=== PATIENT | male | born 1935 | race Caucasian/White ===

== ENCOUNTER → 2018-09-03 | Outpatient (CLI) | payer MEDICARE ==
[~2018-09-03] MED LIST: FURO40TA4 PO; METO-351 PO; OMEP20TA33 PO; PANT40TA2 PO; POTA10TA36 PO; SUCR1TAB36 PO
== END | disposition home or self-care (01) ==
LOC: PREOP 06:16
PROVIDERS: ATTEND Surgery
DX: Z01.818 Encounter for other preprocedural examination (principal)

== ENCOUNTER 2018-09-10 12:55 | Day surgery (SDC) | payer MEDICARE ==
[~2018-09-10] VITALS: Ht 167.6 cm; Wt 99.3 kg
[~2018-09-10 12:55] MED LIST changes: +FERR-84 PO; +GLYB5TAB6 PO; +HYDR25TA4 PO
--- OUTSIDE RECORDS SUMMARY | 2018-09-10 12:59 | XMS REPORT | Continuity of Care Document ---
Author Organization Unknown Address Unknown Allergies Active Description Code Type Severity Reaction Onset Reported/Identified Relationship to Patient Clinical Status Yes No Known Drug Allergies [id number] Drug Allergy Unknown N/A 03/01/2016 Medications There is no data. Problems Date Dx Coded Attending Type Code Diagnosis Diagnosed By 05/31/2015 TOMASA CONNER, SONAM Jack Ot I50.9 06/01/2015 TOMASA CONNER, SONAM Jack Ot D64.9 06/01/2015 SONAM RANDOLPH MD Ot E87.8 06/01/2015 SONAM RANDOLPH MD Ot I10 06/01/2015 TOMASA CONNER, SONAM Jack Ot I44.2 06/01/2015 TOMASA CONNER, SONAM Jack Ot I49.1 06/01/2015 SONAM RANDOLPH MD Ot I49.5 06/01/2015 SONAM RANDOLPH MD Ot I50.1 06/01/2015 SONAM RANDOLPH MD Ot R00.1 06/01/2015 SONAM RANDOLPH MD Ot D64.9 06/01/2015 SONAM RANDOLPH MD Ot E87.8 06/01/2015 OSNAM RANDOLPH MD Ot I10 06/01/2015 TOMASA CONNER, SONAM Jack Ot I44.2 06/01/2015 SONAM RANDOLPH MD Ot I49.1 06/01/2015 SONAM RANDOLPH MD Ot I49.5 06/01/2015 SONAM RANDOLPH MD Ot I50.1 06/01/2015 SONAM RANDOLPH MD Ot R00.1 06/02/2015 SONAM RANDOLPH MD Ot D64.9 06/02/2015 SONAM RANDOLPH MD Ot E87.8 06/02/2015 TOMASA CONNER, SONAM Jack Ot I10 06/02/2015 SONAM RANDOLPH MD Ot I44.2 06/02/2015 SONAM RANDOLPH MD Ot I49.1 06/02/2015 SONAM RANDOLPH MD Ot I49.5 06/02/2015 SONAM RANDOLPH MD Ot I50.1 06/02/2015 SONAM RANDOLPH MD Ot R00.1 06/02/2015 SONAM RANDOLPH MD Ot D50.0 06/02/2015 SONAM RANDOLPH MD Ot D63.8 ANEMIA IN OTHER CHRONIC DISEASES CLASSIF 06/02/2015 SONAM RANDOLPH MD Ot D64.9 06/02/2015 SONAM RANDOLPH MD Ot E87.8 OT DISORDERS OF ELECTROLYTE AND FLUID B 06/02/2015 SONAM RANDOLPH MD Ot I10 ESSENTIAL (PRIMARY) HYPERTENSION 06/02/2015 SONAM RANDOLPH MD Ot I44.2 ATRIOVENTRICULAR BLOCK, COMPLETE 06/02/2015 SONAM RANDOLPH MD Ot I49.1 ATRIAL PREMATURE DEPOLARIZATION 06/02/2015 SONAM RANDOLPH MD Ot I49.5 SICK SINUS SYNDROME 06/02/2015 SONAM RANDOLPH MD Ot I50.1 06/02/2015 SONAM RANDOLPH MD Ot I50.9 HEART FAILURE, UNSPECIFIED 06/02/2015 SONAM RANDOLPH MD Ot N17.9 ACUTE KIDNEY FAILURE, UNSPECIFIED 06/02/2015 SONAM RANDOLPH MD Ot R00.1 06/02/2015 SONAM RANDOLPH MD Ot R19.5 OTHER FECAL ABNORMALITIES 06/08/2015 SONAM RANDOLPH MD Ot D64.9 06/08/2015 SONAM RANDOLPH MD Ot I50.9 06/08/2015 SONAM RANDOLPH MD Ot R00.1 06/15/2015 SONAM RANDOLPH MD Ot D64.9 06/15/2015 SONAM RANDOLPH MD Ot I50.9 06/15/2015 SONAM RANDOLPH MD Ot R00.1 06/15/2015 SONAM RANDOLPH MD Ot D64.9 06/15/2015 SONAM RANDOLPH MD Ot I50.9 06/15/2015 TOMASA CONNER, SONAM Jack Ot R00.1 06/23/2015 SONAM RANDOLPH MD Ot D64.9 06/23/2015 TOMASA CONNER, SONAM Jack Ot I50.9 06/23/2015 SONAM RANDOLPH MD Ot R00.1 07/08/2015 ANGELINE TAPIA DO Ot D64.9 ANEMIA, UNSPECIFIED 07/08/2015 ANGELINE TAPIA DO Ot Z01.818 ENCOUNTER FOR OTHER PREPROCEDURAL EXAMIN 07/09/2015 ANGELINE TAPIA DO Ot D64.9 ANEMIA, UNSPECIFIED 07/09/2015 ANGELINE TAPIA DO Ot Z01.818 ENCOUNTER FOR OTHER PREPROCEDURAL EXAMIN 07/13/2015 TOMASA CONNER, SONAM Jack Ot D64.9 ANEMIA, UNSPECIFIED 07/13/2015 TOMASA CONNER, SONAM Jack Ot I50.9 HEART FAILURE, UNSPECIFIED 07/13/2015 TOMASA CONNER, SONAM Jack Ot R00.1 BRADYCARDIA, UNSPECIFIED 07/15/2015 ANGELINE TAPIA DO Ot D64.9 ANEMIA, UNSPECIFIED 07/15/2015 ANGELINE TAPIA DO Ot K29.70 GASTRITIS, UNSPECIFIED, WITHOUT BLEEDING 07/15/2015 ANGELINE TAPIA DO Ot K44.9 DIAPHRAGMATIC HERNIA WITHOUT OBSTRUCTION 07/15/2015 ANGELINE TAPIA DO Ot K57.30 DVRTCLOS OF LG INT W/O PERFORATION OR AB 07/15/2015 ANGELINE TAPIA DO Ot R19.5 OTHER FECAL ABNORMALITIES 07/20/2015 TOMASA CONNER, SONAM Jack Ot D64.9 ANEMIA, UNSPECIFIED 07/20/2015 SONAM RANDOLPH MD Ot I50.9 HEART FAILURE, UNSPECIFIED 07/20/2015 SONAM RANDOLPH MD Ot R00.1 BRADYCARDIA, UNSPECIFIED 07/20/2015 ANGELINE TAPIA DO Ot D64.9 ANEMIA, UNSPECIFIED 07/20/2015 ANGELINE TAPIA DO Ot K29.70 GASTRITIS, UNSPECIFIED, WITHOUT BLEEDING 07/20/2015 ANGELINE TAPIA DO Ot K44.9 DIAPHRAGMATIC HERNIA WITHOUT OBSTRUCTION 07/20/2015 ANGELINE TAPIA DO Ot K57.30 DVRTCLOS OF LG INT W/O PERFORATION OR AB 07/20/2015 ANGELINE TAPIA DO Ot R19.5 OTHER FECAL ABNORMALITIES 07/21/2015 PHUONG HERRING, ALI FACP CCDS Ot I44.2 ATRIOVENTRICULAR BLOCK, COMPLETE 07/21/2015 PHUONG CONNER FACC, ALI FACP CCDS Ot I51.7 CARDIOMEGALY 07/21/2015 PHUONG CONNER FACC, ALI FACP CCDS Ot N28.9 DISORDER OF KIDNEY AND URETER, UNSPECIFI 07/21/2015 PHUONG CONNER FACC, ALI FACP CCDS Ot Z86.2 PRSNL HISTORY OF DIS OF THE BLD/BLD-FORM 08/03/2015 PHUONG CONNER FACC, ALI FACP CCDS Ot I44.2 ATRIOVENTRICULAR BLOCK, COMPLETE 08/03/2015 PHUONG CONNER [facility], ALI FACP CCDS Ot I51.7 CARDIOMEGALY 08/03/2015 PHUONG CONNER [facility], ALI FACP CCDS Ot N28.9 DISORDER OF KIDNEY AND URETER, UNSPECIFI 08/03/2015 PHUONG CONNER [facility], ALI FACP CCDS Ot Z86.2 PRSNL HISTORY OF DIS OF THE BLD/BLD-FORM 08/20/2015 ANGELINE TAPIA DO Ot D64.9 ANEMIA, UNSPECIFIED 08/20/2015 ANGELINE TAPIA DO Ot K29.70 GASTRITIS, UNSPECIFIED, WITHOUT BLEEDING 08/20/2015 ANGELINE TAPIA DO Ot K44.9 DIAPHRAGMATIC HERNIA WITHOUT OBSTRUCTION 08/20/2015 ANGELINE TAPIA DO Ot K57.30 DVRTCLOS OF LG INT W/O PERFORATION OR AB 08/20/2015 ANGELINE TAPIA DO Ot R19.5 OTHER FECAL ABNORMALITIES 11/05/2015 TOMASA CONNER, SONAM Jack Ot D64.9 ANEMIA, UNSPECIFIED 11/05/2015 TOMASA CONNER, SONAM Jack Ot I50.9 HEART FAILURE, UNSPECIFIED 11/05/2015 TOMASA CONNER, SONAM Jack Ot R00.1 BRADYCARDIA, UNSPECIFIED 11/05/2015 ANGELINE TAPIA DO Ot D64.9 ANEMIA, UNSPECIFIED 11/05/2015 ANGELINE TAPIA DO Ot K29.70 GASTRITIS, UNSPECIFIED, WITHOUT BLEEDING 11/05/2015 ANGELINE TAPIA DO Ot K44.9 DIAPHRAGMATIC HERNIA WITHOUT OBSTRUCTION 11/05/2015 ANGELINE TAPIA DO Ot K57.30 DVRTCLOS OF LG INT W/O PERFORATION OR AB 11/05/2015 ANGELINE TAPIA DO Ot R19.5 OTHER FECAL ABNORMALITIES 11/05/2015 PHUONG CONNER FAC, ALI FACP CCDS Ot I44.2 ATRIOVENTRICULAR BLOCK, COMPLETE 11/05/2015 PHUONG CONNER FAC, ALI FACP CCDS Ot I51.7 CARDIOMEGALY 11/05/2015 PHU[facility] N28.9 DISORDER OF KIDNEY AND URETER, UNSPECIFI 11/05/2015 PHUONG CONNER 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 03/02/2016 SONAM RANDOLPH MD Ot I12.9 HYPERTENSIVE CHRONIC KIDNEY DISEASE W ST 03/02/2016 SONAM RANDOLPH MD, Ot N17.9 ACUTE KIDNEY FAILURE, UNSPECIFIED 03/02/2016 SONAM RANDOLPH MD, Ot N18.9 CHRONIC KIDNEY DISEASE, UNSPECIFIED 03/02/2016 SONAM RANDOLPH MD, Ot N28.9 DISORDER OF KIDNEY AND URETER, UNSPECIFI 03/02/2016 SONAM RANDOLPH MD, Ot R60.9 EDEMA, UNSPECIFIED 03/02/2016 SONAM RANDOLPH MD Ot Z23 ENCOUNTER FOR IMMUNIZATION 03/02/2016 SONAM RANDOLPH MD, Ot Z95.0 PRESENCE OF CARDIAC PACEMAKER 08/22/2018 TOMASA CONNER, SONAM Jack Ot D64.9 ANEMIA, UNSPECIFIED 08/28/2018 TOMASA CONNER, SONAM Jack Ot D64.9 ANEMIA, UNSPECIFIED 09/04/2018 ANGELINE TAPIA DO Ot Z01.818 ENCOUNTER FOR OTHER PREPROCEDURAL EXAMIN 09/06/2018 ANGELINE TAPIA DO Ot Z01.818 ENCOUNTER FOR OTHER PREPROCEDURAL EXAMIN Procedures Code Description Performed By Performed On [id number] INSERTION OF PACEMAKER LEAD INTO RIGHT A 05/31/2015 [id number] INSERTION OF PACEMAKER LEAD INTO R VENTR 05/31/2015 [id number] INSERT PACE. DUAL RAMON IN CHEST SUBCU/FA 05/31/2015 Results Test Result Range RED CELLS LEUKO REDUCED AS1 - 11/05/15 08:12 RED CELLS LEUKO REDUCED AS1 TRANSFUSED 11/05/15 1105 NRG Blood type T Indirect antibody screen panel - 11/05/15 08:12 ABO+Rh group OP NRG Transfusion band number [id number] NRG Blood group antibody screen NEGATIVE NRG RED CELLS LEUKO REDUCED AS1 - 03/01/16 14:58 RED CELLS LEUKO REDUCED AS1 TRANSFUSED 03/01/16 1657 NRG Blood type T Indirect antibody screen panel - 03/01/16 14:58 ABO+Rh group OP NRG Transfusion band number [id number] NRG Blood group antibody screen NEGATIVE NRG Complete blood count (CBC) with automated white blood cell (WBC) differential - 03/02/16 05:40 Blood leukocytes automated count (number/volume) 5.8 10*3/uL 4.3-11.0 Blood erythrocytes automated count (number/volume) 3.54 10*6/uL 4.35-5.85 Venous blood hemoglobin measurement (mass/volume) 8.4 g/dL 13.3-17.7 Blood hematocrit (volume fraction) 27 % 40-54 Automated erythrocyte mean corpuscular volume 76 [foz_us] 80-99 Automated erythrocyte mean corpuscular hemoglobin (mass per erythrocyte) 24 pg 25-34 Automated erythrocyte mean corpuscular hemoglobin concentration measurement (mass/volume) 31 g/dL 32-36 Automated erythrocyte distribution width ratio 21.0 % 10.0- 14.5 Automated blood platelet count (count/volume) 179 10*3/uL 130-400 Automated blood platelet mean volume measurement 9.2 [foz_us] 7.4-10.4 Automated blood neutrophils/100 leukocytes 69 % 42-75 Automated blood lymphocytes/100 leukocytes 21 % 12-44 Blood monocytes/100 leukocytes 9 % 0-12 Automated blood eosinophils/100 leukocytes 1 % 0-10 Automated blood basophils/100 leukocytes 0 % 0-10 Blood neutrophils automated count (number/volume) 4.0 10*3 1.8-7.8 Blood lymphocytes automated count (number/volume) 1.2 10*3 1.0-4.0 Blood monocytes automated count (number/volume) 0.5 10*3 0.0- 1.0 Automated eosinophil count 0.1 10*3/uL 0.0-0.3 Automated blood basophil count (count/volume) 0.0 10*3/uL 0.0-0.1 Whole blood basic metabolic panel - 03/02/16 05:40 Serum or plasma sodium measurement (moles/volume) 138 mmol/L 135-145 Serum or plasma potassium measurement (moles/volume) 4.5 mmol/L 3.6-5.0 Serum or plasma chloride measurement (moles/volume) 104 mmol/L 98-107 Carbon dioxide 26 mmol/L 21-32 Serum or plasma anion gap determination (moles/volume) 8 mmol/L 5-14 Serum or plasma urea nitrogen measurement (mass/volume) 42 mg/dL 7-18 Serum or plasma creatinine measurement (mass/volume) 2.18 mg/dL 0.60-1.30 Serum or plasma urea nitrogen/creatinine mass ratio 19 NRG Serum or plasma creatinine measurement with calculation of estimated glomerular filtration rate 29 NRG Serum or plasma glucose measurement (mass/volume) 100 mg/dL 70-105 Serum or plasma calcium measurement (mass/volume) 8.5 mg/dL 8.5-10.1 Serum or plasma lithium measurement (moles/volume) - 03/02/16 05:40 BNP level 475.0 pg/mL <100.0 Encounters ACCT No. Visit Date/Time Discharge Status Pt. Type Provider Facility Loc./Unit Complaint [id number] 09/06/2018 12:30:00 09/06/2018 13:05:00 DIS Outpatient ANGELINE TAPIA DO [facility] PREOP EGD [id number] 08/22/2018 13:46:00 08/22/2018 23:59:59 CLS Outpatient JAYY PRINCE [facility] ONC [id number] 03/01/2016 14:23:00 03/02/2016 14:36:00 DIS Inpatient SONAM RANDOLPH MD [facility] 4TH ACUTE RENAL DEFICIENCY, SEVERE ANEMIA [id number] 11/05/2015 07:53:00 11/05/2015 23:59:59 C[facility] [id number] 07/20/2015 13:10:00 07/20/2015 23:59:59 CLS Outpatient PHUONG CONNER FACC, MELLY FERRER CCDS [facility] LAB COMPLETE HEART BLOCK,RT HEART ENLARGEMENT, ANEMIA [id number] 07/13/2015 12:21:00 07/13/2015 23:59:59 CLS Outpatient ANGELINE TAPIA DO [facility] SDC ANEMIA [id number] 07/08/2015 05:39:00 07/08/2015 10:05:00 DIS Outpatient ANGELINE TAPIA DO [facility] PREOP ANEMIA [id number] 06/07/2015 11:20:00 06/07/2015 23:59:59 CLS Outpatient SONAM RANDOLPH MD [facility] LAB CHF, BRADYCARDIA, ANEMIA [id number] 05/28/2015 16:10:00 06/02/2015 13:10:00 DIS Inpatient SONAM RANDOLPH MD [facility] 4TH CHF,ANEMIA,RT HEART FAILURE,RENAL FAILURE [id number] 09/10/2018 13:20:00 PEN Preadmit ANGELINE TAPIA DO [facility] ENDO IRON DEF ANEMIA
[2018-09-10 13:00] VITALS: BP 170/74
[2018-09-10] MEDS ORDERED: LACTATED RINGERS 1,000 ML IV STA (13:06)
[2018-09-10] MEDS ORDERED: LACTATED RINGERS 1,000 ML IV ONE (13:10)
[2018-09-10] MEDS ORDERED: HURRICAINE EXT TUBE (BENZOCAINE) XX PRN (13:15)
[2018-09-10] MEDS ORDERED: proPOfol 200 MG/20 ML (DIPRIVAN) VIAL IV ONE ×2 (13:34→13:39)
--- NOTE | 2018-09-10 13:39 | Progress Note-Pre Operative ---
Pre-Operative Progress Note H&P Reviewed The H&P was reviewed, patient examined and no changes noted. Date Seen by Provider: Sep 10, 2018 Time Seen by Provider: 13:39 Date H&P Reviewed: Sep 10, 2018 Time H&P Reviewed: 13:39 Pre-Operative Diagnosis: iron def anemia ANGELINE TAPIA DO Sep 10, 2018 13:39
[2018-09-10] MEDS ORDERED: HURRICAINE EXT TUBE (BENZOCAINE) ONE (13:46)
--- NOTE | 2018-09-10 14:16 | Progress Note-Post Operative ---
Post-Operative Progess Note Surgeon (s)/Upper Leather Sorter (s) Surgeon ANGELINE TAPIA DO Upper Leather Sorter: na Pre-Operative Diagnosis iron def anemia Post-Operative Diagnosis gastritis c erosions Procedure & Operative Findings Date of Procedure 09/10/18 Procedure Performed/Findings egd c biopsy Anesthesia Type per [facility] Estimated Blood Loss Estimated blood loss (mL): scant Specimens/Packing Specimens Removed antrum ANGELINE TAPIA DO Sep 10, 2018 14:16
[2018-09-10] MEDS ORDERED: PANT40TA2 PO (14:21)
[2018-09-10 14:25] VITALS: BP 164/72
--- NOTE | 2018-09-10 14:40 | Anesthesia-General Post-Op ---
MAC Patient Condition Mental Status/LOC: Same as Preop Cardiovascular: Satisfactory Nausea/Vomiting: Absent Respiratory: Satisfactory Pain: Controlled Complications: Absent Post Op Complications Complications None Follow Up Care/Instructions Patient Instructions None needed. Anesthesiology Discharge Order Discharge Order Patient is doing well, no complaints, stable vital signs, no apparent adverse anesthesia problems. No complications reported per nursing. TORIBIO WEAVER CRNA Sep 10, 2018 14:40
[2018-09-10 14:55] VITALS: BP 175/83
--- NOTE | 2018-09-10 15:14 | Discharge Inst-Simple/Standard ---
Discharge Inst-Standard Discharge Medications New, Converted or Re-Newed RX: Transmitted to Pharmacy Patient Instructions/Follow Up Plan of Care/Instructions/FU: 2 weeks Bakari Activity as Tolerated: Yes Discharge Diet: Regular Diet ANGELINE TAPIA DO Sep 10, 2018 15:14
[2018-09-10 15:20] VITALS: BP 175/83
--- NOTE | 2018-09-10 20:10 | OPERATIVE REPORT ---
DATE OF SERVICE: 09/10/2018 PREOPERATIVE DIAGNOSIS: Iron deficiency anemia. POSTOPERATIVE DIAGNOSIS: Gastritis with erosions. PROCEDURE: EGD with biopsy. SURGEON: Angeline Villegas DO ANESTHESIA: Per MDA. ESTIMATED BLOOD LOSS: Scant. COMPLICATIONS: None. INDICATIONS: The patient is an 83-year-old male with iron deficiency anemia with history of significant gastritis. The patient understands risks and benefits of procedure and wished to proceed with procedure. Consent was signed in the chart. DESCRIPTION OF PROCEDURE: The patient was taken to the endoscopy suite, placed in the left lateral recumbent position. Timeout was performed. Scope was inserted in mouth, down the esophagus into the stomach and into the duodenum without difficulty. There were no polyps, masses or ulcerations within the duodenum. Scope was slowly retracted back into the stomach where it was further insufflated. Significant erythematous changes throughout the antrum with areas of raised areas with erosions present. Biopsy of this area was obtained. Scope was retroflexed noting no other pathology. Scope was returned to its normal position, slowly withdrawn to the distal esophagus, which the patient had esophageal varices throughout the esophagus. No polyps, mass or ulcerations. The scope was then slowly retracted back to completely remove, noting no other pathology. The patient tolerated procedure well without any complications. He was taken to recovery room in stable condition. RECOMMENDATIONS: The patient will be switched to Protonix 40 mg daily and stop the omeprazole. We will see how he is doing in the office in about 2 to 3 weeks. Job ID: [id number] DocumentID: [id number] Dictated Date: 09/10/2018 14:23:38 Circular Knife Machine Cutter Date: 09/10/2018 20:09:07 Dictated By: ANGELINE VILLEGAS DO
== END 2018-09-10 15:20 | disposition home or self-care (01) ==
LOC: ENDO 12:55
PROVIDERS: ATTEND Surgery
DX: K29.70 Gastritis, unspecified, without bleeding (principal); K25.9 Gastric ulcer, unspecified as acute or chronic, without hemorrhage or perforation; D50.9 Iron deficiency anemia, unspecified; E11.9 Type 2 diabetes mellitus without complications; I10 Essential (primary) hypertension; I44.2 Atrioventricular block, complete; E66.9 Obesity, unspecified; Z68.35 Body mass index [BMI] 35.0-35.9, adult; Z95.0 Presence of cardiac pacemaker; Z79.899 Other long term (current) drug therapy
CPT/HCPCS: 82962

== ENCOUNTER 2018-09-13 10:57 | Outpatient (RCR) | payer MEDICARE ==
[2018-08-22 14:26] LABS: ABSOLUTE RETIC # 56 10e9/L (24-90); BASOPHILS % (AUTO) 1 % (0-10); EOSINOPHILS # (AUTO) 0.1 10^3/uL (0.0-0.3); EOSINOPHILS % (AUTO) 2 % (0-10); HEMATOCRIT 24 % (40-54); HEMOGLOBIN 7.3 G/DL (13.3-17.7); LYMPHOCYTES # (AUTO) 1.1 X 10^3 (1.0-4.0); LYMPHOCYTES % (AUTO) 25 % (12-44); MEAN CORPUSCULAR HEMOGLOBIN 20 PG (25-34); MEAN CORPUSCULAR HGB CONC 30 G/DL (32-36); MEAN CORPUSCULAR VOLUME 68 FL (80-99); MEAN PLATELET VOLUME 9.3 FL (7.4-10.4); MONOCYTES # (AUTO) 0.4 X 10^3 (0.0-1.0); MONOCYTES % (AUTO) 9 % (0-12); NEUTROPHILS # (AUTO) 2.8 X 10^3 (1.8-7.8); NEUTROPHILS % (AUTO) 64 % (42-75); PLATELET COUNT 255 10^3/uL (130-400); RED CELL DISTRIBUTION WIDTH 19.6 % (10.0-14.5); RETICULOCYTE % 1.58 % (0.50-2.40); WHITE BLOOD COUNT 4.4 10^3/uL (4.3-11.0)
[2018-08-22 14:52] LABS: ALBUMIN 3.9 GM/DL (3.2-4.5); BILIRUBIN,TOTAL 0.8 MG/DL (0.1-1.0); CALCIUM 9.1 MG/DL (8.5-10.1); CREATININE SERUM 1.53 MG/DL (0.60-1.30); POTASSIUM 3.9 MMOL/L (3.6-5.0); TOTAL PROTEIN 7.6 GM/DL (6.4-8.2)
[2018-09-13 11:13] LABS: BASOPHILS % (AUTO) 0 % (0-10); EOSINOPHILS # (AUTO) 0.1 10^3/uL (0.0-0.3); EOSINOPHILS % (AUTO) 2 % (0-10); HEMATOCRIT 32 % (40-54); HEMOGLOBIN 9.6 G/DL (13.3-17.7); LYMPHOCYTES # (AUTO) 1.3 X 10^3 (1.0-4.0); LYMPHOCYTES % (AUTO) 25 % (12-44); MEAN CORPUSCULAR HEMOGLOBIN 24 PG (25-34); MEAN CORPUSCULAR HGB CONC 30 G/DL (32-36); MEAN CORPUSCULAR VOLUME 79 FL (80-99); MEAN PLATELET VOLUME 9.4 FL (7.4-10.4); MONOCYTES # (AUTO) 0.4 X 10^3 (0.0-1.0); MONOCYTES % (AUTO) 8 % (0-12); NEUTROPHILS # (AUTO) 3.3 X 10^3 (1.8-7.8); NEUTROPHILS % (AUTO) 65 % (42-75); PLATELET COUNT 175 10^3/uL (130-400); WHITE BLOOD COUNT 5.1 10^3/uL (4.3-11.0)
== END 2018-11-20 | disposition home or self-care (01) ==
LOC: ONC 10:57
PROVIDERS: ATTEND Internal Medicine Hematology & Oncology
DX: D50.9 Iron deficiency anemia, unspecified (principal); I10 Essential (primary) hypertension; E11.9 Type 2 diabetes mellitus without complications; I44.2 Atrioventricular block, complete; Z87.11 Personal history of peptic ulcer disease; Z95.0 Presence of cardiac pacemaker; Z79.84 Long term (current) use of oral hypoglycemic drugs; Z79.899 Other long term (current) drug therapy
CPT/HCPCS: 36415; 80053; 82728; 82784; 83540; 83615; 83883; 84155; 84165; 84443; 85025; 85045; 99213; 99214

== ENCOUNTER → 2020-02-16 | Outpatient (CLI) | payer MEDICARE ==
[2020-02-16 15:23] LABS: BASOPHILS % (AUTO) 1 % (0-10); EOSINOPHILS # (AUTO) 0.1 10^3/uL (0.0-0.3); EOSINOPHILS % (AUTO) 1 % (0-10); HEMATOCRIT 42 % (40-54); HEMOGLOBIN 13.4 g/dL (13.3-17.7); LYMPHOCYTES # (AUTO) 1.2 10^3/uL (1.0-4.0); LYMPHOCYTES % (AUTO) 21 % (12-44); MEAN CORPUSCULAR HEMOGLOBIN 33 pg (25-34); MEAN CORPUSCULAR HGB CONC 32 g/dL (32-36); MEAN CORPUSCULAR VOLUME 102 fL (80-99); MEAN PLATELET VOLUME 10.1 fL (9.0-12.2); MONOCYTES # (AUTO) 0.4 10^3/uL (0.0-1.0); MONOCYTES % (AUTO) 8 % (0-12); NEUTROPHILS # (AUTO) 3.8 10^3/uL (1.8-7.8); NEUTROPHILS % (AUTO) 69 % (42-75); PLATELET COUNT 142 10^3/uL (130-400); WHITE BLOOD COUNT 5.4 10^3/uL (4.3-11.0)
[2020-02-16 15:42] LABS: ALBUMIN 3.8 GM/DL (3.2-4.5); CALCIUM 9.1 MG/DL (8.5-10.1); CREATININE SERUM 1.38 MG/DL (0.60-1.30); POTASSIUM 4.3 MMOL/L (3.6-5.0); TOTAL PROTEIN 7.6 GM/DL (6.4-8.2)
[2020-02-16 15:45] LABS: BILIRUBIN,URINE NEGATIVE (NEGATIVE); CLARITY,URINE CLEAR; COLOR,URINE YELLOW; GLUCOSE, URINE (UA) NEGATIVE (NEGATIVE); KETONES,URINE NEGATIVE (NEGATIVE); LEUKOCYTE ESTERASE ,URINE NEGATIVE (NEGATIVE); NITRITE,URINE NEGATIVE (NEGATIVE); PROTEIN,URINE NEGATIVE (NEGATIVE)
[2020-02-16 16:00] LABS: AMORPHOUS SEDIMENT,UR FEW AMOR URATES /LPF; BACTERIA,URINE NEGATIVE /HPF
== END ==
LOC: LAB 14:59
PROVIDERS: ATTEND Thoracic Surgery (Cardiothoracic Vascular Surgery)
DX: Z01.810 Encounter for preprocedural cardiovascular examination (principal); Z01.818 Encounter for other preprocedural examination; Z11.59 Encounter for screening for other viral diseases; I65.23 Occlusion and stenosis of bilateral carotid arteries
CPT/HCPCS: 36415; 80053; 81000; 85025

== ENCOUNTER → 2020-02-16 | Outpatient (CLI) | payer MEDICARE ==
--- NOTE | 2020-02-16 17:28 | Diagnostic Imaging Report ---
EXAMINATION: US Lower Extremity Arterial Duplex Bilateral. TECHNIQUE: Multiple real-time grayscale images were obtained over both lower extremities in various projections. Additional duplex Doppler and color Doppler images were also obtained. HISTORY: Non pressure chronic ulcer Lt calf. COMPARISON: None available. FINDINGS: Right lower extremity: A normal triphasic waveform is seen within the common femoral and superficial femoral arteries. Biphasic flow is seen within the popliteal, anterior tibial, and dorsalis pedis arteries. Abnormal monophasic flow is seen within the posterior tibial artery. Mild plaquing is seen in the right lower extremity. There is decrease velocity seen within the posterior tibial artery. Left lower extremity: A normal triphasic waveform is seen within the left common femoral, superficial femoral, and popliteal arteries. Abnormal monophasic flow is seen within the anterior tibial, posterior tibial, and dorsalis pedis arteries. Mild plaquing is seen in the left lower extremity. There is monophasic flow with increased velocities in the anterior tibial and dorsalis pedis arteries suggesting focal stenosis at this location. There is dampened monophasic flow within the posterior tibial artery suggesting a more proximal stenosis. IMPRESSION: 1. 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 2. Hemodynamically significant stenosis within the right anterior tibial, posterior tibial, and dorsalis pedis arteries. Dictated by: Dictated on workstation # [id number]
== END ==
LOC: RAD 14:56
PROVIDERS: ATTEND Nurse Practitioner Acute Care
DX: I65.23 Occlusion and stenosis of bilateral carotid arteries (principal); L97.221 Non-pressure chronic ulcer of left calf limited to breakdown of skin
CPT/HCPCS: 93925

== ENCOUNTER → 2020-02-19 | Outpatient (CLI) | payer MEDICARE ==
--- NOTE | 2020-02-19 15:24 | Diagnostic Imaging Report ---
PA and lateral chest at 2:34. Indication: Preop carotid artery surgery. The heart size is within normal limits and the heart does seem less prominent than noted on the prior exam of 05/31/2015. The left-sided pacemaker seen previously is again evident. In the interval since the prior exam a vague area of increased density has developed along the left heart border. This may be secondary to chronic atelectasis/scar formation as opposed to mild acute pneumonia/atelectasis. Clinical followup is recommended however. The carotid bronchovascular markings in the right infrahilar region seen previously are again evident and no different. The lungs are otherwise generally clear. The mediastinum is not widened. The osseous structures are intact. Impression: 1. The vague area of increased density partial obscuring the left heart border may well be chronic in nature. The possibility that there is an element of mild pneumonia/atelectasis in this area should also be considered. Clinical followup is recommended. 2. There is no acute cardiopulmonary abnormality noted otherwise. Dictated by: Dictated on workstation # [id number]
== END ==
LOC: CARD 14:26
PROVIDERS: ATTEND Thoracic Surgery (Cardiothoracic Vascular Surgery)
DX: Z01.810 Encounter for preprocedural cardiovascular examination (principal); Z11.59 Encounter for screening for other viral diseases; I65.23 Occlusion and stenosis of bilateral carotid arteries
CPT/HCPCS: 71046

== ENCOUNTER → 2020-03-29 | Outpatient (CLI) | payer MEDICARE ==
[2020-03-29 16:30] LABS: BASOPHILS % (AUTO) 1 % (0-10); EOSINOPHILS # (AUTO) 0.1 10^3/uL (0.0-0.3); EOSINOPHILS % (AUTO) 1 % (0-10); HEMATOCRIT 39 % (40-54); HEMOGLOBIN 13.1 g/dL (13.3-17.7); LYMPHOCYTES # (AUTO) 1.6 10^3/uL (1.0-4.0); LYMPHOCYTES % (AUTO) 25 % (12-44); MEAN CORPUSCULAR HEMOGLOBIN 32 pg (25-34); MEAN CORPUSCULAR HGB CONC 34 g/dL (32-36); MEAN CORPUSCULAR VOLUME 93 fL (80-99); MEAN PLATELET VOLUME 10.1 fL (9.0-12.2); MONOCYTES # (AUTO) 0.4 10^3/uL (0.0-1.0); MONOCYTES % (AUTO) 7 % (0-12); NEUTROPHILS # (AUTO) 4.4 10^3/uL (1.8-7.8); NEUTROPHILS % (AUTO) 67 % (42-75); PLATELET COUNT 166 10^3/uL (130-400); WHITE BLOOD COUNT 6.5 10^3/uL (4.3-11.0)
[2020-03-29 16:47] LABS: ALBUMIN 3.8 GM/DL (3.2-4.5); POTASSIUM 4.4 MMOL/L (3.6-5.0)
[2020-03-29 16:49] LABS: CALCIUM 8.7 MG/DL (8.5-10.1)
[2020-03-29 16:50] LABS: TOTAL PROTEIN 7.8 GM/DL (6.4-8.2)
[2020-03-29 16:51] LABS: BILIRUBIN,TOTAL 0.8 MG/DL (0.1-1.0)
[2020-03-29 16:53] LABS: CREATININE SERUM 1.5 MG/DL (0.60-1.30)
== END ==
LOC: LAB 16:10
PROVIDERS: ATTEND Thoracic Surgery (Cardiothoracic Vascular Surgery)
DX: Z01.818 Encounter for other preprocedural examination (principal); Z01.810 Encounter for preprocedural cardiovascular examination; L97.222 Non-pressure chronic ulcer of left calf with fat layer exposed; I65.23 Occlusion and stenosis of bilateral carotid arteries
CPT/HCPCS: 36415; 80053; 85025

== ENCOUNTER → 2020-04-07 | Outpatient (CLI) | payer MEDICARE ==
[~2020-04-07] MED LIST changes: +GLBR5T PO; -GLYB5TAB6 PO
--- NOTE | 2020-04-07 17:03 | Diagnostic Imaging Report ---
EXAMINATION: Chest 2 views. HISTORY: Preoperative exam. COMPARISON: 02/19/2020 FINDINGS: The lungs are clear without edema or pneumonia. No pleural effusion or pneumothorax. Heart size is normal. Left subclavian pacemaker is present. IMPRESSION: 1. Clear lungs. Dictated by: Dictated on workstation # [id number]
== END ==
LOC: CARD 16:35
PROVIDERS: ATTEND Thoracic Surgery (Cardiothoracic Vascular Surgery)
DX: Z01.810 Encounter for preprocedural cardiovascular examination (principal); I65.23 Occlusion and stenosis of bilateral carotid arteries
CPT/HCPCS: 71046; 93005

== ENCOUNTER → 2020-04-07 | Outpatient (CLI) | payer MEDICARE ==
[2020-04-07 17:09] LABS: BASOPHILS % (AUTO) 1 % (0-10); EOSINOPHILS # (AUTO) 0.1 10^3/uL (0.0-0.3); EOSINOPHILS % (AUTO) 1 % (0-10); HEMATOCRIT 39 % (40-54); HEMOGLOBIN 12.8 g/dL (13.3-17.7); LYMPHOCYTES # (AUTO) 1.4 10^3/uL (1.0-4.0); LYMPHOCYTES % (AUTO) 23 % (12-44); MEAN CORPUSCULAR HEMOGLOBIN 31 pg (25-34); MEAN CORPUSCULAR HGB CONC 33 g/dL (32-36); MEAN CORPUSCULAR VOLUME 94 fL (80-99); MEAN PLATELET VOLUME 10.1 fL (9.0-12.2); MONOCYTES # (AUTO) 0.4 10^3/uL (0.0-1.0); MONOCYTES % (AUTO) 6 % (0-12); NEUTROPHILS # (AUTO) 4.2 10^3/uL (1.8-7.8); NEUTROPHILS % (AUTO) 69 % (42-75); PLATELET COUNT 172 10^3/uL (130-400); WHITE BLOOD COUNT 6.1 10^3/uL (4.3-11.0)
[2020-04-07 17:43] LABS: BILIRUBIN,TOTAL 0.8 MG/DL (0.1-1.0); CALCIUM 8.6 MG/DL (8.5-10.1); CREATININE SERUM 1.72 MG/DL (0.60-1.30); POTASSIUM 4.3 MMOL/L (3.6-5.0); TOTAL PROTEIN 7.9 GM/DL (6.4-8.2)
[2020-04-07 17:44] LABS: ALBUMIN 3.9 GM/DL (3.2-4.5)
== END ==
LOC: LAB 16:25
DX: L97.222 Non-pressure chronic ulcer of left calf with fat layer exposed (principal)
CPT/HCPCS: 36415; 80053; 83036; 85025

== ENCOUNTER 2020-07-31 10:54 | Emergency (ER) | payer MEDICARE ==
[~2020-07-31] VITALS: Ht 170 cm; Wt 104.0 kg
[2020-07-31] MEDS ORDERED: ASPIRIN 81 MG CHEW (CHILDREN'S ASA) PO ONE (11:30)
[2020-07-31] MEDS ORDERED: FUROSEMIDE 40 MG/4 ML INJ (LASIX) IVP ONE ×3 (11:30→13:30)
--- NOTE | 2020-07-31 11:32 | ED Cardiac General ---
History of Present Illness General Chief Complaint: General Problems/Pain Stated Complaint: FULL OF FLUID CAN'T STAND, ARM LEAKING FLUID Nursing Triage Note: ARRIVED VIA WC FROM HOME. FAMILY STARTED NOTICING SWELLING YESTERDAY AND TODAY WAS WEEPING FROM HIS ARMS. PT STATES HE TOOK X4 IRON PILLS THINKING THEY WERE HIS LASIX. PT IS OUT OF HIS LASIX ACCORDING TO FAMILY. Source: patient Exam Limitations: no limitations History of Present Illness Date Seen by Provider: July 31, 2020 Time Seen by Provider: 10:59 Initial Comments Patient presents ER by private conveyance with chief complaint of shortness of breath and edema. His daughter went to check on him this morning and he says he been doubling up on his Lasix 20 mg daily but she says he was actually just taking iron tablets. Not sure how long his been off of his Lasix. Patient has a history of a wound on his left leg that was healed up last year at [place] and asked on the discovered he had heart failure and he follows with Dr. 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 Primary care is Dr. Randolph. He has diabetes on glyburide. He is not on insulin. He is not having any chest pain fevers chills sweats. He feels cool. No cough. Echo 2016 shows moderate right atrial and right ventricular dilatation with an LVEF of 70%. History of dual-chamber pacemaker 2016 due to complete heart block. History of hypertension, anemia, sleep apnea. Chronic kidney disease. Allergies and Home Medications Allergies Coded Allergies: No Known Drug Allergies (Verified , 03/01/16) Home Medications Ferrous Sulfate 325 Mg Tablet, 325 MG PO DAILY, (Reported) Glyburide 5 Mg Tablet, 5 MG PO DAILY, (Reported) Hydrochlorothiazide 25 Mg Tablet, 25 MG PO DAILY, (Reported) Pantoprazole Sodium 40 Mg Tablet.dr, 40 MG PO DAILY Prescribed by: ANGELINE TAPIA on 09/10/18 1421 Patient Home Medication List Home Medication List Reviewed: Yes Review of Systems Review of Systems Constitutional: No chills, No fever; weakness EENTM: No Blurred Vision, No Double Vision Respiratory: Denies Cough; Shortness of Air, SOA With Exertion Cardiovascular: Denies Chest Pain, Denies Lightheadedness Gastrointestinal: Denies Constipated, Denies Diarrhea, Denies Nausea Genitourinary: Denies Burning, Denies Discharge Musculoskeletal: No back pain, No joint pain Past Lcuaqcn-Hsmwao-Yjyjko Hx Patient Social History Alcohol Use: Denies Use Smoking Status: Never a Smoker Recent Infectious Disease Expo: No Recent Hopitalizations: No Immunizations Up To Date Date of Pneumonia Vaccine: Feb 24, 2011 Seasonal Allergies Seasonal Allergies: No Past Medical History Surgeries: Yes (PACEMAKER, back muscle sx) Respiratory: No Currently Using CPAP: No Currently Using BIPAP: No Cardiac: Yes (PACEMAKER) Hypertension Neurological: No Reproductive Disorders: No Genitourinary: No Gastrointestinal: No Musculoskeletal: No Endocrine: Yes Diabetes, Non-Insulin dep Cancer: No Psychosocial: No Integumentary: No Blood Disorders: No (ANEMIA) Adverse Reaction/Blood Tranf: No Family Medical History Patient reports no known family medical history. No Pertinent Family Hx Physical Exam Vital Signs Vital Signs - First Documented 07/31/20 07/31/20 11:00 13:49 Temp 33.2 Pulse 81 Resp 16 B/P (MAP) 94/51 (65) Pulse Ox 90 O2 Delivery Room Air O2 Flow Rate 40.00 Capillary Refill : Less Than 3 Seconds Height, Weight, BMI Height: 5'6.00" Weight: 219lbs. 0.0oz. 99.060167bq; 35.00 BMI Method:Stated General Appearance: Chronically ill, Obese, Severe Distress HEENT: PERRL/EOMI, Pharynx Normal, Moist Mucous Membranes Neck: Full Range of Motion, Normal Inspection Respiratory: Accessory Muscle Use, Decreased Breath Sounds, Rales (Bilateral bases), Respiratory Distress (Oxygen saturation 88% on room air with increased work of breathing and a sensory muscle use.) Cardiovascular: Regular Rate, Rhythm, Other (3+ woody pitting edema) Gastrointestinal: Normal Bowel Sounds, Non Tender, Soft Neurologic/Psychiatric: Alert, Oriented x3, No Motor/Sensory Deficits Skin: Other (Weeping edema all 4 extremities) Procedures/Interventions Lumen: triple Central Line Procedure: betadine prep (Chlorhexidine prep), sterile drapes applied, sterile dressing applied Position: internal jugular (L) Anesthesia: Lidocaine (1%) Volume Anesthetic (ccs): 3 Complications: none Post Position: sutured, good blood return, position confirmed w/ CXR 1245: Risks, benefits and alternatives were discussed with the patient and the patient consented to the procedure. The patient was positioned in the usual format and using the usual sterile garments and drapes the patient was dressed out. The skin was thoroughly cleaned with the supplied chlorhexidine prep. After the prep had dried a sterile drape was placed. The 20 cm 7 Azeri triple-lumen catheter was flushed with sterile saline. We used ultrasound guidance to pass the introducer needle into the left internal jugular without difficulty. A guidewire was placed easily without difficulty. No ectopy was seen on the monitor. The supplied 11 blade scalpel was used to make a 2 mm incision at the inferior portion of the introducer needle. The introducer needle was replaced with the dilator. The dilator was taken out and the patient had the central lumen of the triple lumen catheter threaded over the guidewire and placed at 14 cm. The guidewire was removed and the triple-lumen catheter was stitched in place using the supplied braided stitch at 2 different points. The catheter withdrew blood and flushed easily. A sterile dressing was placed over the cathet er. The patient tolerated the procedure well. A chest x-ray was obtained that demonstrated no pneumothorax and a new interval central catheter over the shadow of the left internal jugular down the superior vena cava and terminating just proximal to the right atria. Progress/Results/Core Measures Results/Orders Lab Results Laboratory Tests Test 07/31/20 11:25 07/31/20 11:40 07/31/20 13:23 07/31/20 15:15 Range/Units Blood Gas Puncture Site RIGHT RAD Blood Gas Patient Temperature 33.2 Arterial Blood pH 7.43 7.37-7.43 Arterial Blood Partial Pressure CO2 25 L 35-45 MMHG Arterial Blood Partial Pressure O2 61 L 79-93 MMHG Arterial Blood HCO3 17 *L 23-27 MMOL/L Arterial Blood Total CO2 18.0 L 21.0-31.0 MMOL/L Arterial Blood Oxygen Saturation 95 94-100 % Arterial Blood Base Excess -7.2 L -2.5-2.5 MMOL/L Alverto Test YES-POS Blood Gas Ventilator Setting NO Blood Gas Inspired Oxygen 3 White Blood Count 9.5 4.3-11.0 10^3/uL Red Blood Count 3.26 L 4.30-5.52 10^6/uL Hemoglobin 10.1 L 13.3-17.7 g/dL Hematocrit 30 L 40-54 % Mean Corpuscular Volume 93 80-99 fL Mean Corpuscular Hemoglobin 31 25-34 pg Mean Corpuscular Hemoglobin Concent 33 32-36 g/dL Red Cell Distribution Width 15.5 H 10.0-14.5 % Platelet Count 263 130-400 10^3/uL Mean Platelet Volume 10.1 9.0-12.2 fL Immature Granulocyte % (Auto) 1 % Neutrophils (%) (Auto) 85 H 42-75 % Lymphocytes (%) (Auto) 6 L 12-44 % Monocytes (%) (Auto) 9 0-12 % Eosinophils (%) (Auto) 0 0-10 % Basophils (%) (Auto) 0 0-10 % Neutrophils # (Auto) 8.1 H 1.8-7.8 10^3/uL Lymphocytes # (Auto) 0.5 L 1.0-4.0 10^3/uL Monocytes # (Auto) 0.8 0.0-1.0 10^3/uL Eosinophils # (Auto) 0.0 0.0-0.3 10^3/uL Basophils # (Auto) 0.0 0.0-0.1 10^3/uL Immature Granulocyte # (Auto) 0.1 0.0-0.1 10^3/uL Neutrophils % (Manual) 88 % Lymphocytes % (Manual) 8 % Monocytes % (Manual) 4 % Poikilocytosis MODERATE Anisocytosis SLIGHT Acanthocytes MODERATE Sodium Level 127 L 135-145 MMOL/L Potassium Level 5.7 H 3.6-5.0 MMOL/L Chloride Level 89 L 98-107 MMOL/L Carbon Dioxide Level 17 L 21-32 MMOL/L Anion Gap 21 H 5-14 MMOL/L Blood Urea Nitrogen 67 H 7-18 MG/DL Creatinine 7.32 H 0.60-1.30 MG/DL Estimat Glomerular Filtration Rate 7 BUN/Creatinine Ratio 9 Glucose Level 68 L 70-105 MG/DL Calcium Level 8.9 8.5-10.1 MG/DL Corrected Calcium 9.2 8.5-10.1 MG/DL Magnesium Level 2.7 H 1.6-2.4 MG/DL Total Bilirubin 1.7 H 0.1-1.0 MG/DL Aspartate Amino Transf (AST/SGOT) 351 H 5-34 U/L Alanine Aminotransferase (ALT/SGPT) 226 H 0-55 U/L Alkaline Phosphatase 151 H 40-136 U/L Troponin I 0.127 H <0.028 NG/ML C-Reactive Protein High Sensitivity 4.59 H 0.00-0.50 MG/DL B-Type Natriuretic Peptide 860.7 H <100.0 PG/ML Total Protein 7.4 6.4-8.2 GM/DL Albumin 3.6 3.2-4.5 GM/DL Glucometer 72 83 70-110 MG/DL My Orders Orders - KANA CORDERO Chest 1 View, Ap/Pa Only (07/31/20 11:18) Ekg Tracing (07/31/20 11:18) Monitor-Rhythm Ecg Trace Only (07/31/20 11:18) Aspirin Chewable Tablet (Baby Aspirin Ch (07/31/20 11:30) Cbc With Automated Diff (07/31/20 11:18) Comprehensive Metabolic Panel (07/31/20 11:18) Hs C Reactive Protein (07/31/20 11:18) Magnesium (07/31/20 11:18) Ed Iv/Invasive Line Start (07/31/20 11:18) Arterial Blood Gas (07/31/20 11:28) Furosemide Injection (Lasix Injection) (07/31/20 11:30) Troponin I (07/31/20 11:40) Manual Differential (07/31/20 11:40) Chest 1 View, Ap/Pa Only (07/31/20 12:44) General/Regular (07/31/20 Lunch) Bipap (Bilevel) Set Up (07/31/20 13:17) Furosemide Injection (Lasix Injection) (07/31/20 13:30) Furosemide Injection (Lasix Injection) (07/31/20 13:30) Francois Cath (07/31/20 13:17) Accucheck Stat ONCE (07/31/20 13:18) BNP (07/31/20 13:30) D50w (Emergency) Syringe (Dextrose 50% 5 (07/31/20 13:30) Tramadol Tablet (Ultram Tablet) (07/31/20 14:30) Accucheck Stat ONCE (07/31/20 15:14) Medications Given in ED Current Medications Medications Dose Ordered Sig/Jose M Route Start Time Stop Time Status Last Admin Dose Admin Aspirin 324 mg ONCE ONCE PO 07/31/20 11:30 07/31/20 11:31 DC 07/31/20 11:41 324 MG Dextrose 25 ml ONCE ONCE IV 07/31/20 13:30 07/31/20 13:33 DC 07/31/20 13:38 25 ML Furosemide 20 mg ONCE ONCE IVP 07/31/20 11:30 07/31/20 11:31 DC 07/31/20 11:41 20 MG Furosemide 40 mg ONCE ONCE IVP 07/31/20 13:30 07/31/20 13:31 DC 07/31/20 13:38 40 MG Furosemide 100 mg ONCE ONCE IVP 07/31/20 13:30 07/31/20 13:31 DC 07/31/20 13:37 100 MG Tramadol HCl 50 mg ONCE ONCE PO 07/31/20 14:30 07/31/20 14:31 DC 07/31/20 14:24 50 MG Vital Signs/I&O 07/31/20 07/31/20 07/31/20 11:00 13:49 15:19 Temp 33.2 Pulse 81 60 Resp 16 22 B/P (MAP) 94/51 (65) 106/43 Pulse Ox 90 97 94 O2 Delivery Room Air NIV Bilevel O2 Flow Rate 40.00 Blood Pressure Mean: 65 Progress Progress Note #1: Time: 12:54 Progress Note Patient reasserts that he is a full code. We discussed his poor labs and function and that he would need to go somewhere else with nephrology support for possible dialysis to help with his abject heart failure and acute respiratory failure. We did increase his oxygen from 3 L to 5 L after reviewing the ABG anshu wing respiratory hypoxemia. Central line was placed because his blood pressures were soft initially but after the Lasix has been given his blood pressure has stayed in the 1 10-1 20 systolic range so we have not needed to give him any pressors. He did get aspirin. I suspect that his elevated troponin is related to his abject renal failure. We will initiate a Francois catheter for accurate input and output and because he is hemodynamically unstable. We did attempt to get him to [place] however Ernst and [facility] are both on diversion. We are awaiting a phone call back from [facility]. The daughter is working with the cyanide pot tender to get power of tax associate attorney paperwork signed. Progress Note #2: Time: 13:21 Progress Note Plan to get a repeat Accu-Chek since his initial 68. We have ordered him something to eat. We will give him some D 25 if necessary. 140 mg more of Lasix to make a total of 160 has been ordered. A Francois catheter is been ordered. Respiratory therapy has been asked to come down to set up the patient while on BiPAP. BiPAP on 30/08 at 40% and he is tolerating it well. Initial ECG Impression Date: July 31, 2020 Initial ECG Impression Time: 11:26 Initial ECG Rate: 79 Initial ECG Intervals: Normal Initial ECG Impression: Nonspecific Changes Initial ECG Comparisson: Unchanged Comment Atrial paced rhythm with right bundle branch block and no clinically relevant ST changes. Diagnostic Imaging Diagonstic Imaging: Xray Plain Films/CT/US/NM/MRI: chest Comments [facility], [place] NAME: ABRANRODRIGUEZ [facility] REC#: [id number] PT STATUS: REG ER : 1935 PHYSICIAN: KANA CORDERO MD ADMIT DATE: 07/31/20/ER Draft Date of Exam:07/31/20 CHEST 1 VIEW, AP/PA ONLY INDICATION: Chest pain. TIME OF EXAM: 11:39 AM Correlation is made prior chest 04/07/2020. FINDINGS: Cardiac pacemaker is in place. There are bibasilar infiltrates and small effusions. Mid and upper lung vu are clear. There is no pneumothorax. IMPRESSION: Bibasilar pulmonary infiltrates and small bilateral pleural effusions. Dictated on workstation # [id number] Dict: 07/31/20 1140 Trans: 07/31/20 1142 [id number] Interpreted by: JOSEPH GRAHAM MD Electronically signed by: Reviewed: Reviewed by Me Diagonstic Imaging: Xray Plain Films/CT/US/NM/MRI: chest Comments [facility] [place], [place] NAME: JOYCELYNRODRIGUEZ [facility] REC#: [id number] PT STATUS: REG ER : 1935 PHYSICIAN: KANA CORDERO MD ADMIT DATE: 07/31/20/ER Draft Date of Exam:07/31/20 CHEST 1 VIEW, AP/PA ONLY INDICATION: Central line placement. FINDINGS: Left IJ catheter tip projects over the mid SVC in good alignment. Pacemaker device stable. Bilateral pleural effusions greater right have increased. The heart size is enlarged increased. There is some central vascular congestion. IMPRESSION: Central line placed without complicating feature, increased pleural fluid, cardiomegaly and venous congestion with likely increased edema. Dictated on workstation # [id number] Dict: 07/31/20 1300 Trans: 07/31/20 1307 [id number] Interpreted by: ARIAS ROBERTSON Electronically signed by: Reviewed: Reviewed by Me Departure Impression Primary Impression: Acute heart failure Qualified Codes: I50.9 - Heart failure, unspecified Additional Impressions: Acute respiratory failure with hypoxemia Acute renal failure Qualified Codes: N17.9 - Acute kidney failure, unspecified Disposition: 02 XFER SHT-TRM HOSP Condition: Stable Transfer Transfer Reason: Exceeds level of care Time Spoke to Accepting Phy: 13:30 Transfer Progress Notes 1315: Dr. Pretty declined the patient for the ICU unless he decompensates further. He recommends TPU. Presley, triage nurse will call us back with a internal medicine doctor. He recommends we go for 160 mg of Lasix as well as BiPAP if the patient will tolerate it. 1330: Dr. Sales; agrees to take him to stepdown unit. He agrees with interventions thus far. They will call us back with a room number. Transfer Time: 16:00 Transfer Facility: [facility] Method of Transfer: Air ([facility]) Departure-Patient Inst. Referrals: SONAM RANDOLPH MD (PCP/Family) Primary Care Physician Copy Copies To 1: SONAM RANDOLPH MD, TITUS J July 31, 2020 11:32
[2020-07-31 11:35] LABS: ABG BASE EXCESS -7.2 MMOL/L (-2.5-2.5); ABG OXYGEN SATURATION 95 % (94-100); ABG PCO2 25 MMHG (35-45); ABG PH 7.43 (7.37-7.43); ABG PO2 61 MMHG (79-93)
[2020-07-31 11:37] LABS: ALLENS TEST YES-POS; INSPIRED O2 3; PATIENT TEMP 33.2; VENTILATOR NO
--- NOTE | 2020-07-31 11:43 | Diagnostic Imaging Report ---
INDICATION: Chest pain. TIME OF EXAM: 11:39 AM Correlation is made prior chest 04/07/2020. FINDINGS: Cardiac pacemaker is in place. There are bibasilar infiltrates and small effusions. Mid and upper lung vu are clear. There is no pneumothorax. IMPRESSION: Bibasilar pulmonary infiltrates and small bilateral pleural effusions. Dictated by: Dictated on workstation # [id number]
[2020-07-31 11:48] LABS: BASOPHILS % (AUTO) 0 % (0-10); EOSINOPHILS % (AUTO) 0 % (0-10); HEMATOCRIT 30 % (40-54); HEMOGLOBIN 10.1 g/dL (13.3-17.7); LYMPHOCYTES # (AUTO) 0.5 10^3/uL (1.0-4.0); LYMPHOCYTES % (AUTO) 6 % (12-44); MEAN CORPUSCULAR HEMOGLOBIN 31 pg (25-34); MEAN CORPUSCULAR HGB CONC 33 g/dL (32-36); MEAN CORPUSCULAR VOLUME 93 fL (80-99); MEAN PLATELET VOLUME 10.1 fL (9.0-12.2); MONOCYTES # (AUTO) 0.8 10^3/uL (0.0-1.0); MONOCYTES % (AUTO) 9 % (0-12); NEUTROPHILS # (AUTO) 8.1 10^3/uL (1.8-7.8); NEUTROPHILS % (AUTO) 85 % (42-75); PLATELET COUNT 263 10^3/uL (130-400); WHITE BLOOD COUNT 9.5 10^3/uL (4.3-11.0)
[2020-07-31 12:03] LABS: ALBUMIN 3.6 GM/DL (3.2-4.5)
[2020-07-31 12:04] LABS: LYMPHOCYTES % (MANUAL) 8 %; MONOCYTES % (MANUAL) 4 %; NEUTROPHILS % (MANUAL) 88 %
[2020-07-31 12:05] LABS: ANISOCYTOSIS SLIGHT; CALCIUM 8.9 MG/DL (8.5-10.1); POIKILOCYTOSIS MODERATE
[2020-07-31 12:06] LABS: ACANTHOCYTES MODERATE; TOTAL PROTEIN 7.4 GM/DL (6.4-8.2)
[2020-07-31 12:08] LABS: BILIRUBIN,TOTAL 1.7 MG/DL (0.1-1.0)
[2020-07-31 12:10] LABS: CREATININE SERUM 7.32 MG/DL (0.60-1.30)
[2020-07-31 12:13] LABS: MAGNESIUM 2.7 MG/DL (1.6-2.4)
[2020-07-31 12:17] LABS: POTASSIUM 5.7 MMOL/L (3.6-5.0)
--- NOTE | 2020-07-31 13:08 | Diagnostic Imaging Report ---
INDICATION: Central line placement. FINDINGS: Left IJ catheter tip projects over the mid SVC in good alignment. Pacemaker device stable. Bilateral pleural effusions greater right have increased. The heart size is enlarged increased. There is some central vascular congestion. IMPRESSION: Central line placed without complicating feature, increased pleural fluid, cardiomegaly and venous congestion with likely increased edema. Dictated by: Dictated on workstation # [id number]
[2020-07-31] MEDS ORDERED: DEXTROSE 50% 50 ML (IMS) SYR IV ONE (13:30)
[2020-07-31 15:19] VITALS: BP 106/43
== END 2020-07-31 15:12 | disposition short-term general hospital (02) ==
LOC: EDUNIT# 10:54 → ER 10:56
DX: I11.0 Hypertensive heart disease with heart failure (principal); I50.9 Heart failure, unspecified; J96.01 Acute respiratory failure with hypoxia; N17.9 Acute kidney failure, unspecified; E11.9 Type 2 diabetes mellitus without complications; D64.9 Anemia, unspecified; E66.9 Obesity, unspecified; Z68.35 Body mass index [BMI] 35.0-35.9, adult; Z95.0 Presence of cardiac pacemaker; Z79.899 Other long term (current) drug therapy; Z79.84 Long term (current) use of oral hypoglycemic drugs
CPT/HCPCS: 36415; 51702; 71045; 80053; 82805; 82947; 83735; 83880; 84484; 85007; 85027; 86141; 93005; 93041